=== PATIENT | female | born 1985 ===

== ENCOUNTER → 2024-01-01 13:42 | Outpatient (REF) | payer BC, SELFPAY | LOC: RAD 13:42 | PROVIDERS: ATTENDING PHYSICIAN Registered Nurse; FAMILY PHYSICIAN Family Medicine | DX: I82.401 Acute embolism and thrombosis of unspecified deep veins of right lower extremity (principal) | CPT/HCPCS: 93971 ==

== ENCOUNTER → 2024-08-07 07:34 | Outpatient (REF) | payer BC, SELFPAY | LOC: RCS 07:34 | PROVIDERS: ATTENDING PHYSICIAN Nurse Practitioner Family | DX: R00.2 Palpitations (principal) | CPT/HCPCS: 93017; 93225; 93226 ==